=== PATIENT | male | born 1955 | race Two or more races ===

== ENCOUNTER 2018-09-26 14:57 | Emergency (ER) | payer MEDICARE, MEDICAID ==
--- NOTE | 2018-09-26 16:00 | ED Physician Chart ---
ED Chief Complaint/HPI - Patient Information Date Seen:: 09/26/18 Time Seen:: 15:05 Chief Complaint:: Refusing food with weight loss. History of Present Illness:: Brought in by ambulance from nursing facility because pt has been refusing food with weight loss recently. Pt appears to be comfortable without distress. Pt has h/o dementia and is uncooperative; thus, H & P are limited. Info is primarily from review of limited transfer documents. Allergies:: Allergies Allergy/AdvReac Type Severity Reaction Status Date / Time No Known Allergies Allergy Verified 09/26/18 15:15 Vitals:: Vital Signs - 8 hr 09/26/18 15:16 Temp 97.5 F HR 67 RR 22 BP 147/70 O2 Sat % 96 Family MD/PCP:: Dr. Moya LMP:: N/A Review:: Nurse's Note Reviewed, Transfer documents Reviewed ED Review of Systems - Review of Systems General/Constitutional: Other (Pt does not cooperate for ROS.) ED Past Medical History - Past Medical History Past Medical History: HTN, CAD (?), Asthma/COPD, Seizures, Dementia Family History: Other (Pt does not cooperate to provide info on FHx.) Social History: Care Facility Surgical History: other (Pt does not cooperate to provide info on Surgical Hx.) Psychiatricy History: Dementia Medication: Reviewed Family Medical History - Family Member Mother History Unknown: Yes ED Physical Exam - Physical Examination General/Constitutional: Awake, Well-developed, well-nourished (male), Alert, No distress, GCS 15, Non-toxic appearing, Ambulatory Other Gen/Cons comments:: Breathes comfortably, speaks clearly, but is uncooperative. Head: Atraumatic Eyes: Lids, conjuctiva normal, PERRL, EOMI Skin: Well hydrated, No lymphadenopathy ENMT: External ears, nose nl, Nasal exam nl, Oropharynx nl Neck: Nontender, Full ROM w/o pain, No JVD, No nuchal rigidity, No mass, No stridor Respiratory: Nl effort/Exclusion, Clear to Auscultation, No Wheeze/Rhonchi/Rales Cardio Vascular: RRR, No murmur, gallop, rubs GI: No tenderness/rebounding/guarding, No organomegaly, Normal BS's, Nondistended, No mass/bruits Extremities: No tenderness or effusion, No edema (Alert) Neuro/Psych: Alert/oriented (know his name.) Other Neuro/Psych comments:: Spontaneous movements noticed in all 4 extremities. Pt does not cooperate for full neurological exam. ED Labs/Radiology/EKG Results - Lab Results Results: Laboratory Results - last 24 hr 09/26/18 09/26/18 16:00 16:00 WBC 9.5 RBC 5.51 Hgb 16.1 Hct 49.2 MCV 89.4 MCH 29.2 MCHC Differential 32.7 RDW 14.1 Plt Count 226 MPV 9.5 Neutrophils % 64.9 Lymphocytes % 25.5 Monocytes % 7.7 Eosinophils % 1.2 Basophils % 0.7 PT 9.3 L INR 0.88 PTT (Actin FS) 25.0 L Laboratory Last Values WBC 9.5 Th/cmm (4.8-10.8) 09/26/18 16:00 RBC 5.51 Mil/cmm (4.30-5.70) 09/26/18 16:00 Hgb 16.1 gm/dL (12-16) 09/26/18 16:00 Hct 49.2 % (41.0-60) 09/26/18 16:00 MCV 89.4 fl (80-99) 09/26/18 16:00 MCH 29.2 pg (26.0-30.0) 09/26/18 16:00 MCHC Differential 32.7 pg (28.0-36.0) 09/26/18 16:00 RDW 14.1 % (11.5-20.0) 09/26/18 16:00 Plt Count 226 Th/cmm (150-400) 09/26/18 16:00 MPV 9.5 fl 09/26/18 16:00 Neutrophils % 64.9 % (40.0-80.0) 09/26/18 16:00 Lymphocytes % 25.5 % (20.0-50.0) 09/26/18 16:00 Monocytes % 7.7 % (2.0-10.0) 09/26/18 16:00 Eosinophils % 1.2 % (0.0-5.0) 09/26/18 16:00 Basophils % 0.7 % (0.0-2.0) 09/26/18 16:00 PT 9.3 SECONDS (9.5-11.5) L 09/26/18 16:00 INR 0.88 (0.5-1.4) 09/26/18 16:00 PTT (Actin FS) 25.0 SECONDS (26.0-38.0) L 09/26/18 16:00 Sodium 144 mEq/L (136-145) 09/26/18 16:00 Potassium 4.1 mEq/L (3.5-5.1) 09/26/18 16:00 Chloride 107 mEq/L (98-107) 09/26/18 16:00 Carbon Dioxide 23.3 mEq/L (21.0-31.0) 09/26/18 16:00 Anion Gap 17.8 (7.0-16.0) H 09/26/18 16:00 BUN 16 mg/dL (7-25) 09/26/18 16:00 Creatinine 0.9 mg/dL (0.7-1.3) 09/26/18 16:00 Est GFR ( Amer) > 60.0 ml/min (>90) 09/26/18 16:00 Est GFR (Non-Af Amer) > 60.0 ml/min 09/26/18 16:00 BUN/Creatinine Ratio 17.8 09/26/18 16:00 Glucose 103 mg/dL (70-105) 09/26/18 16:00 Calcium 9.3 mg/dL (8.6-10.3) 09/26/18 16:00 Total Bilirubin 0.3 mg/dL (0.3-1.0) 09/26/18 16:00 AST 14 U/L (13-39) 09/26/18 16:00 ALT 11 U/L (7-52) 09/26/18 16:00 Alkaline Phosphatase 53 U/L (34-104) 09/26/18 16:00 Total Protein 6.7 gm/dL (6.0-8.3) 09/26/18 16:00 Albumin 4.3 gm/dL (4.2-5.5) 09/26/18 16:00 Globulin 2.4 gm/dL 09/26/18 16:00 Albumin/Globulin Ratio 1.8 (1.0-1.8) 09/26/18 16:00 Valproic Acid 16.8 ug/mL (50.0-100.0) L 09/26/18 16:00 Laboratory Last Values WBC 9.5 Th/cmm (4.8-10.8) 09/26/18 16:00 RBC 5.51 Mil/cmm (4.30-5.70) 09/26/18 16:00 Hgb 16.1 gm/dL (12-16) 09/26/18 16:00 Hct 49.2 % (41.0-60) 09/26/18 16:00 MCV 89.4 fl (80-99) 09/26/18 16:00 MCH 29.2 pg (26.0-30.0) 09/26/18 16:00 MCHC Differential 32.7 pg (28.0-36.0) 09/26/18 16:00 RDW 14.1 % (11.5-20.0) 09/26/18 16:00 Plt Count 226 Th/cmm (150-400) 09/26/18 16:00 MPV 9.5 fl 09/26/18 16:00 Neutrophils % 64.9 % (40.0-80.0) 09/26/18 16:00 Lymphocytes % 25.5 % (20.0-50.0) 09/26/18 16:00 Monocytes % 7.7 % (2.0-10.0) 09/26/18 16:00 Eosinophils % 1.2 % (0.0-5.0) 09/26/18 16:00 Basophils % 0.7 % (0.0-2.0) 09/26/18 16:00 PT 9.3 SECONDS (9.5-11.5) L 09/26/18 16:00 INR 0.88 (0.5-1.4) 09/26/18 16:00 PTT (Actin FS) 25.0 SECONDS (26.0-38.0) L 09/26/18 16:00 Sodium 144 mEq/L (136-145) 09/26/18 16:00 Potassium 4.1 mEq/L (3.5-5.1) 09/26/18 16:00 Chloride 107 mEq/L (98-107) 09/26/18 16:00 Carbon Dioxide 23.3 mEq/L (21.0-31.0) 09/26/18 16:00 Anion Gap 17.8 (7.0-16.0) H 09/26/18 16:00 BUN 16 mg/dL (7-25) 09/26/18 16:00 Creatinine 0.9 mg/dL (0.7-1.3) 09/26/18 16:00 Est GFR ( Amer) > 60.0 ml/min (>90) 09/26/18 16:00 Est GFR (Non-Af Amer) > 60.0 ml/min 09/26/18 16:00 BUN/Creatinine Ratio 17.8 09/26/18 16:00 Glucose 103 mg/dL (70-105) 09/26/18 16:00 Calcium 9.3 mg/dL (8.6-10.3) 09/26/18 16:00 Total Bilirubin 0.3 mg/dL (0.3-1.0) 09/26/18 16:00 AST 14 U/L (13-39) 09/26/18 16:00 ALT 11 U/L (7-52) 09/26/18 16:00 Alkaline Phosphatase 53 U/L (34-104) 09/26/18 16:00 Total Protein 6.7 gm/dL (6.0-8.3) 09/26/18 16:00 Albumin 4.3 gm/dL (4.2-5.5) 09/26/18 16:00 Globulin 2.4 gm/dL 09/26/18 16:00 Albumin/Globulin Ratio 1.8 (1.0-1.8) 09/26/18 16:00 Urine Source CLEAN C 09/26/18 17:10 Urine Color YELLOW 09/26/18 17:10 Urine Clarity CLEAR (CLEAR) 09/26/18 17:10 Urine pH 5.5 (4.6 - 8.0) 09/26/18 17:10 Ur Specific [place] >= 1.030 (1.005-1.030) 09/26/18 17:10 Urine Protein NEGATIVE mg/dL (NEGATIVE) 09/26/18 17:10 Urine Glucose (UA) >=1000 mg/dL (NEGATIVE) H 09/26/18 17:10 Urine Ketones TRACE mg/dL (NEGATIVE) 09/26/18 17:10 Urine Blood NEGATIVE (NEGATIVE) 09/26/18 17:10 Urine Nitrate NEGATIVE (NEGATIVE) 09/26/18 17:10 Urine Bilirubin NEGATIVE (NEGATIVE) 09/26/18 17:10 Urine Urobilinogen 0.2 E.U./dL (0.2 - 1.0) 09/26/18 17:10 Ur Leukocyte Esterase NEGATIVE (NEGATIVE) 09/26/18 17:10 Urine RBC 0-2 /hpf (0-5) H 09/26/18 17:10 Urine WBC 0-2 /hpf (0-5) 09/26/18 17:10 Ur Epithelial Cells FEW /lpf (FEW) 09/26/18 17:10 Urine Bacteria FEW /hpf (NONE SEEN) 09/26/18 17:10 Urine Mucus FEW /lpf (FEW) 09/26/18 17:10 Valproic Acid 16.8 ug/mL (50.0-100.0) L 09/26/18 16:00 ED Septic Shock - . Is Septic Shock (SBP<90, OR Lactate>4 mmol\L) present?: No - <6hrs of presentation: Vital Signs: Vital Signs - 8 hr 09/26/18 15:16 Temp 97.5 F HR 67 RR 22 BP 147/70 O2 Sat % 96 ED Reassessment (Disposition) - Reassessment Reassessment:: [id number] Pt remains stable. No new complaint or findings. 1943 Case has just been discussed with Dr. Baird at [facility] with pertinent H & P and available lab findings reviewed. He accepts pt to be transferred to [facility]. - Diagnosis Diagnosis:: Failure to thrive with weight loss. HTN. Dementia. Seizure disorder. - Patient Disposition Discharge/Transfer:: Acute Care (other hosp) Accepting Physician:: Dr. Baird Transport Method:: BLS Spoke to:: Dr. Baird Time:: 22:20 Condition at Disposition:: Stable
[2018-09-26 16:29] LABS: % BASOPHILS 0.7 % (0.0-2.0); % EOSINOPHILS 1.2 % (0.0-5.0); % LYMPHOCYTES 25.5 % (20.0-50.0); % MONOCYTES 7.7 % (2.0-10.0); % NEUTROPHILS 64.9 % (40.0-80.0); BASOPHILE ABSOLUTE 0.1 Th/cumm (0-0.2); EOSINOPHILE ABSOLUTE 0.1 Th/cmm (0.1-0.4); HEMATOCRIT 49.2 % (41.0-60); HEMOGLOBIN 16.1 gm/dL (12-16); LYMPHOCYTE ABSOLUTE 2.4 Th/cmm (1.5-3.0); MEAN CELL VOLUME 89.4 fl (80-99); MEAN CORPUSCULAR HEMOGLOBIN 29.2 pg (26.0-30.0); MEAN CORPUSCULAR HGB CONC 32.7 pg (28.0-36.0); MONOCYTE ABSOLUTE 0.7 Th/cmm (0.3-1.0); NEUTROPHILE ABSOLUTE 6.2 Th/cmm (1.8-8.0); PLATELET COUNT 226 Th/cmm (150-400); RED BLOOD COUNT 5.51 Mil/cmm (4.30-5.70); RED CELL DISTRIBUTION WIDTH 14.1 % (11.5-20.0); WHITE BLOOD COUNT 9.5 Th/cmm (4.8-10.8)
[2018-09-26 16:51] LABS: INR 0.88 (0.5-1.4)
[2018-09-26 16:53] LABS: ALB/GLOB RATIO 1.8 (1.0-1.8); ALBUMIN 4.3 gm/dL (4.2-5.5); ALKALINE PHOSPHATASE 53 U/L (34-104); ANION GAP 17.8 (7.0-16.0); BILIRUBIN,TOTAL 0.3 mg/dL (0.3-1.0); BUN - UREA NITROGEN 16 mg/dL (7-25); CALCIUM SERUM 9.3 mg/dL (8.6-10.3); CARBON DIOXIDE 23.3 mEq/L (21.0-31.0); CHLORIDE 107 mEq/L (98-107); CREATININE - SERUM 0.9 mg/dL (0.7-1.3); GFR AFRICAN-AMERICAN > 60.0 ml/min (>90); GFR NON AFRICAN-AMERICAN > 60.0 ml/min; GLUCOSE 103 mg/dL (70-105); POTASSIUM SERUM 4.1 mEq/L (3.5-5.1); SGOT 14 U/L (13-39); SGPT/ALT 11 U/L (7-52); SODIUM SERUM 144 mEq/L (136-145); TOTAL PROTEIN,SERUM 6.7 gm/dL (6.0-8.3)
[2018-09-26 18:53] LABS: URINE SOURCE CLEAN C
[2018-09-26 19:03] LABS: URINE BILIRUBIN NEGATIVE (NEGATIVE); URINE BLOOD NEGATIVE (NEGATIVE); URINE CLARITY CLEAR (CLEAR); URINE COLOR YELLOW; URINE GLUCOSE (UA) >=1000 mg/dL (NEGATIVE); URINE KETONE TRACE mg/dL (NEGATIVE); URINE LEUKOCYTE ESTERASE NEGATIVE (NEGATIVE); URINE MICROSCOPIC INDICATED? YES; URINE NITRATE NEGATIVE (NEGATIVE); URINE PH 5.5 (4.6 - 8.0); URINE PROTEIN NEGATIVE (NEGATIVE); URINE UROBILINOGEN 0.2 E.U./dL (0.2 - 1.0)
[2018-09-26 19:10] LABS: URINE BACTERIA FEW /hpf (NONE SEEN); URINE EPITHELIAL CELLS FEW /lpf (FEW); URINE RBC 0-2 /hpf (0-5); URINE WBC 0-2 /hpf (0-5)
== END 2018-09-26 22:20 | disposition short-term general hospital (02) ==
LOC: ER 14:57
DX: I10 Essential (primary) hypertension (principal); F03.90 Unspecified dementia, unspecified severity, without behavioral disturbance, psychotic disturbance, mood disturbance, and anxiety; G40.909 Epilepsy, unspecified, not intractable, without status epilepticus; R62.7 Adult failure to thrive; I25.10 Atherosclerotic heart disease of native coronary artery without angina pectoris; J44.9 Chronic obstructive pulmonary disease, unspecified
CPT/HCPCS: 36415-UA; 80053-TC; 80164-TC; 81001-TC; 82948-90; 85025-TC; 85610-TC